=== PATIENT | female | born 1980 ===

== ENCOUNTER 2021-11-19 12:51 | Outpatient (REF) | payer OTHER, SELFPAY ==
--- NOTE | 2021-11-19 14:17 | MHC.AU.ANR ---
Adult Audiological Evaluation Date of Visit: 11/19/21 Reason for Appointment: Ms. Cifuentes was seen today to evaluate her hearing status due to concerns of a gradual decrease in hearing. Patient reports increased difficulties understanding speech in the presence of background noise. 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 Does patient feel they have a hearing loss?: Yes If Yes, Which Ear?: Both Ears When Was Hearing Difficulty First Noticed?: Patient reports noticing increased difficulties hearing in noise about one year prior. 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 Ear used on the phone: Right Ear Medical History: Medical History: Tonsillectomy in 1986 and PE Tubes in 1987 Medication List: Apri Control, Multivitamin, Vitamin D Otoscopy: Right Ear: Unremarkable Left Ear: Unremarkable Tympanometry: Tympanometry performed due to: To assess integrity of the middle ear system Right Ear: Normal Middle Ear System (Type A) Left Ear: Normal Middle Ear System (Type A) Hearing Evaluation: Transducer(s) Used: Insert Earphones, Bone Conduction Method: Conventional Audiometry Stimuli Used: Pure Tones Right Ear: Description of Hearing: Normal hearing thresholds from 250-8000 Hz. Left Ear: Description of Hearing: Normal hearing thresholds from 250-8000 Hz. Speech Recognition Threshold (SRT): Method Used: Monitored Live Voice Stimuli Used: Spondee Words Right Ear: 5 dB HL Left Ear: 10 dB HL Word Discrimination: Method: Recorded Lists Word Lists Used: NU-6 Right Ear: 100% at 50 dB HL Left Ear: 100% at 50 dB HL QuickSIN: 2 dB SNR loss when presented at 50 dB HL binaurally Interpretation of Results: Normal hearing thresholds, tympanograms, and otoacoustic emissions. Normal speech in noise understanding abilities as measured by the QuickSIN. Recommendations: No further audiological action is indicated at this time. Audiological re-evaluation if changes are noted. Discussed the importance of good communication strategies in noise to improve speech understanding. Patient is recommended to return for a re-evaluation if changes in hearing is noted. Diagnosis: Primary Diagnosis: H93.293 Abnormal Auditory Perception Services Performed: Services Performed: Comprehensive Audiological Evaluation (CPT 57590) Diagnostic Otoacoustic Emissions (CPT 16537, 26+TC) Tympanometry (CPT 78769) Unlisted Otorhinolaryngological Service or Procedure (CPT 38877) Signature: Student/Clinical Fellow: Yes: Teena Velazquez B.A., Sandor Teaching Supervisor I have reviewed/agreed with student/fellow documentation: Yes Provider: Sandor Wang, CCC-A
== END 2021-11-19 12:52 | disposition home or self-care (01) ==
LOC: HO.SH 12:51
PROVIDERS: Visit Provider Physician Assistant
DX: Z01.118 Encounter for examination of ears and hearing with other abnormal findings (principal); H93.293 Other abnormal auditory perceptions, bilateral
CPT/HCPCS: 92557; 92567; 92588; 92700